=== PATIENT | female | born 1980 | race Caucasian/White ===

== ENCOUNTER 2018-07-12 10:35 | Emergency (ER) | payer BC ==
[2018-07-12 11:01] VITALS: BP 117/74
--- NOTE | 2018-07-12 11:06 | UC ---
Hand/Wrist HPI - HPI Summary HPI Summary: 37-year-old female with left ring finger swelling today. No known injury. She has 3 rings on that finger which she is unable to remove after several attempts with Vaseline, dental floss. - History Of Current Complaint Chief Complaint: UCUpperExtremity Stated Complaint: LEFT RING FINGER SWELLING Time Seen by Provider: 07/12/18 11:06 Hx Obtained From: Patient Hx Last Menstrual Period: 06/25/18 ?: No Onset/Duration: Gradual Onset Severity Initially: Mild Severity Currently: Moderate - This patient had tried to get the rings off with dental floss Vaseline the left finger distal to the rings is now more swollen and red. Pain Intensity: 0 Character Of Pain: Dull, Aching Aggravating Factor(s): Other - Patient aggravated the finger by trying to remove the rings herself using dental floss Vaseline she is now here with more swollen finger. Alleviating Factor(s): Nothing Associated Signs And Symptoms: Positive: Swelling, Redness - Allergies/Home Medications Allergies/Adverse Reactions: Allergies Allergy/AdvReac Type Severity Reaction Status Date / Time amoxicillin Allergy Vomiting Verified 07/12/18 10:57 Penicillins Allergy Unknown Verified 07/12/18 10:57 Reaction Details Home Medications: Home Medications NK [No Home Medications Reported] 07/12/18 [History Confirmed 07/12/18] PMH/Surg Hx/FS Hx/Imm Hx Previously Healthy: Yes - Surgical History Surgical History: Yes Surgery Procedure, Year, and Place: Right Knee Tendon Repair - Family History Known Family History: Positive: Non-Contributory - Social History Alcohol Use: Occasionally Substance Use Type: None Smoking Status (MU): Never Smoked Tobacco - Immunization History Most Recent Influenza Vaccination: Fall 2013 Review of Systems All Other Systems Reviewed And Are Negative: Yes Skin: Positive: Other - Swelling left ring fingers and she tried to get the rings off. She denies any numbness or tingling to the distal finger. Is Patient Immunocompromised?: No Physical Exam Triage Information Reviewed: Yes Appearance: Well-Appearing, No Pain Distress, Well-Nourished Vital Signs: Initial Vital Signs Temp 98.2 F 07/12/18 10:57 Pulse 79 07/12/18 10:57 Resp 16 07/12/18 10:57 BP 117/74 07/12/18 10:57 Pulse Ox 97 07/12/18 10:57 Vital Signs Reviewed: Yes Musculoskeletal Exam: Normal Musculoskeletal: Positive: Strength Intact, ROM Intact, Other: - Mild swelling and redness of the distal left ring finger. There does appear to be one small area of redness on the radial side which may be a bug bite. Neurological: Positive: Alert, Muscle Tone Normal Psychological Exam: Normal Skin: Positive: Other - Swelling and redness to the left ring finger. Hand/Wrist Course/Dx - Course Course Of Treatment: With the patient's consent, it was necessary to remove all 3 rings by cutting. The patient tolerated procedure well. Following procedure she had good peripheral pulses neuro sensation capillary refill and normal finger strength with flexion extension against resistance. There does appear to be a small reddened area near the knuckle which may be an insect bite which may but because of swelling. She may take Benadryl 25 mg every 6 hours at home as needed. - Differential Dx/Diagnosis Provider Diagnosis: Finger swelling Discharge - Sign-Out/Discharge Documenting (check all that apply): Patient Departure All imaging exams completed and their final reports reviewed: No Studies - Discharge Plan Condition: Fair Disposition: HOME Referrals: Arlet Linares MD [Primary Care Provider] - Additional Instructions: Ice intermittently and elevate your hand as much as possible today. May take Tylenol or Motrin for pain. Follow-up with your primary care provider or an orthopedist if any further concerns. Do not reapply your rings until the finger swelling has completely resolved. - Billing Disposition and Condition Condition: FAIR Disposition: Home - Attestation Statements Provider Attestation: Per institutional requirements, I have reviewed the chart, however, I was not consulted specifically or made aware of this patient by the midlevel provider. I did not personally evaluate, interact with , or disposition this patient.
== END 2018-07-12 11:42 | disposition home or self-care (01) ==
LOC: UCCORT 10:35
DX: M79.89 Other specified soft tissue disorders (principal); Z88.0 Allergy status to penicillin
CPT/HCPCS: 99203; G0463